=== PATIENT | female | born 1995 | race American Indian/Alaskan Native ===

== ENCOUNTER 2018-01-28 15:30 | Emergency (ER) | payer OTHER ==
[2017-12-20 10:04] VITALS: BMI 45.7
[2018-01-28] MEDS ORDERED: Lactated Ringer's 1,000 ML IV SCH (16:30)
[2018-01-28 16:46] LABS: BASO % 0.2 % (0.0-2.0); EOS # 0.1 K/uL (0.0-0.7); HEMOGLOBIN 10.5 g/dL (11.0-16.0); LYMPH # 1.3 K/uL (1.0-4.3); LYMPH % 15.1 % (20.0-40.0); MEAN CELL VOLUME 72.2 fL (81.0-99.0); MEAN CORPUSCULAR HEMOGLOBIN 23.2 pg (27.0-31.0); MEAN CORPUSCULAR HGB CONC 32.1 g/dL (33.0-37.0); MEAN PLATELET VOLUME 7.9 fL (7.2-11.7); MONO # 0.8 K/uL (0.0-0.8); MONO % 9.5 % (0.0-10.0); NEUT # 6.2 K/uL (1.8-7.0); NEUT % 74.2 % (50.0-75.0); NRBC % 0.1 % (0.0-2.0); RBC 4.54 Mil/uL (3.80-5.20); RED CELL DISTRIBUTION WIDTH 14.7 % (11.5-14.5); WHITE BLOOD COUNT 8.4 K/uL (4.8-10.8)
[2018-01-28 16:48] LABS: SQUAMOUS EPITHIAL 3 /hpf (0-5); URINE BACTERIA RARE (<OCC); URINE BILIRUBIN NEGATIVE (NEGATIVE); URINE BLOOD NEGATIVE (NEGATIVE); URINE CLARITY Clear (Clear); URINE COLOR Yellow (YELLOW); URINE GLUCOSE (UA) NORMAL (Normal); URINE LEUKOCYTE ESTERASE NEG Leu/uL (Negative); URINE PROTEIN NEGATIVE (NEGATIVE); URINE UROBILINOGEN NORMAL mg/dL (0.2-1.0)
[2018-01-28 16:53] VITALS: TEMP 97.8
[2018-01-28 16:56] LABS: ALB/GLOB RATIO 1.1 (1.0-2.1); ALBUMIN 3.4 g/dL (3.5-5.0); ALT/SGPT 14 U/L (9-52); AST/SGOT 17 U/L (14-36); BLOOD UREA NITROGEN 3 mg/dL (7-17); CALCIUM 8.7 mg/dl (8.6-10.4); GFR NON-AFRICAN AMERICAN > 60; URIC ACID 3.6 mg/dL (2.2-7.5)
[2018-01-28 17:01] LABS: BENZODIAZEPINES, UR NEGATIVE (NEGATIVE); OPIATES, UR NEGATIVE (NEGATIVE); PHENCYCLIDINE, UR NEGATIVE (NEGATIVE)
[2018-01-28 17:03] LABS: BARBITURATES, UR POSITIVE (NEGATIVE)
[2018-01-28 17:23] LABS: INR 1.1; PROTHROMBIN TIME 12.2 SECONDS (9.7-12.2)
--- NOTE | 2018-01-28 18:31 | US ---
Indication: No motion, 35 weeks, morbid obesity, gestational hypertension Comparison: None Technique: Real-time ultrasound was performed through the pelvis. Findings: There is a single living fetus in cephalic presentation. Amniotic fluid volume is within normal limits, 13.8 cm. Anterior placenta. The placenta is not previa. There are no adnexal masses or cysts evident. Cervix length measures approximately 3.8 cm. The study was performed for emergent evaluation, and the whole anatomic survey of the fetus was not performed. This should be performed on an outpatient elective basis as clinically warranted. Measurements and calculations: Fetus has a composite sonographic age of 34 weeks 0 days. This calculation is based on the biparietal diameter, head circumference, abdominal circumference, and femur length. Estimated heart rate 138.9 beats per min. Estimated weight 2275 g. Biophysical profile: movements 2/2 breathing 2/2 tone 2/2 Amniotic fluid 2/2 Total score impression: 10/30 Impression: Single living fetus with a composite sonographic age of 34 weeks 0 days. Estimated heart rate 138.9 beats per min. Biophysical profile of 8 out of 8.
[2018-01-29 00:51] VITALS: BP 122/74; PULSE 96
--- NOTE | 2018-02-03 11:58 | OBHP ---
Datetime: 01/28/2018 16:32 IP Adm Impression: No Active Labor IP Admit Plan: Discharge home Admit Comment, IP Provider: CC: Headache/dizziness for my entire , worst over the last day, no movement since yesterday afternoon. HPI: The 22 year old AA female, [id number], at 34wks gestation with gestational HTN - presents c/o he adache and dizziness for her entire , worst over the last day. She also c/o no perceived fet al movement since yesterday afternoon. She is followed weekly by her ObGyn (Shena lau in [place]) , who prescribed her Fioricet 1tab q4H PRN (called in) yesterday. She took one tab in the evening, bu t did not feel better. This morning, she woke up with increased headache, dizziness, blurry vision, a nd n/v. She describes the headache as frontal, pounding, rated 7/10, that comes and goes. She denies any sensitivity to light or any auras. She did not take her Labetalol 200mg BID this morning because she did not feel well (last dose last night). Of note, she has suffered from gestational HTN during t his only. Her prior 2 pregnancies were uncomplicated. She last saw her ObGyn 1 week ago - w ho has been performing weekly ultrasounds to monitor her . She has been instructed to get da princess bed rest due to her gestational HTN. She denies chest pain, overt SOB, numbness, tingling, overt LE swelling, abdominal pain, vaginal bleeding, contractions, loss of fluid, or any additional acute c omplaints. PMHx: Gestational HTN PSHx: Jaw fracture reguiring metal fixation 2015 Meds: Labetalol 200mg PO BID; Fioricet 1tab PO q4H PRN headache Allergies: NKDA FamHx: Mother 60yo w/ESRD, DM, HTN; Father 2/2 CA (unknown age or CA type) SocHx: denies ETOH, tobacco, or drug use. Last sexual acitivity 3wks ago with her partner. Lives w ith partner and children. Unemployed PMD: [employer] ([employer]) LMP: 06/03/17 Due date: 03/10/18 --- A_P: 1. Gestational HTN -continue Labetalol 200mg PO BID -r/o Pre-Eclampsia - CBC, CMP, PT/PTT, Fibrinogen, UA, UDS, LDH, Uric Acid -Start LR 125cc/hr (1 L) 2. Decreased contractions -last contractions noted to be yesterday -BPP 3. Headache -Start Tylenol 650mg PO q6H PRN headache -maintain hydration Case discussed with Dr. Teague, Attending Biju Leiva DO, PGY-3 Attending Note: patient seen and evaluated by me with the Resident. I agree with the above as docu mented Addendum: 1850 hours - Patient returns from ultrasound. Reports no headaches (after taking tylenol) - BP 122/74 ( S/P labetalol 200mg p.o. x 1) - pre-eclamptic labs negative: urine protein (-); normal LFTs and coagulation studies. - OB ultrasound images and report reviewed by me: EGA 34w 1d, EFW 5lb; anterior placenta; cephalic presentation. BHARTI 13.81; BPS 8/8 Assessment: 22 y.o. P2, gestational HTN - no evidence of pre-eclampsia. Headache - atypical for mi graine; relieved with tylenol. Decreased FM - resolved; BPP wnl and reassuring. Patient counsled on i mportance of takin ganti-HTN meds as prescribed and on taking tylenol PRN, and to increae p.o. intake of water. Patient has appointment Thrus 01/31/16; counseled to keep. Patient is clinically s table. Plan: 1) Discharge home 2) Reviewd S/S PTL 3) As above. Pelvic Type - PN: Not Done Extremities - PN: Normal Abdomen - PN: Normal Back - PN: Normal Breast - PN: Not Done Lungs - PN: Normal Heart - PN: Normal Thyroid - PN: Normal Neurologic - PN: Normal HEENT - PN: Normal General - PN: Normal Comments, ACOG Physical Exam: Neurological exam WNL CN's II-XII intact Mild posterior scalp sensitivity (atraumatic) EGA AdmitDate IP: 34.1 Vital Signs Provider: Reviewed Vital Signs Provider Details: Initial BP 154/85; came down to 124/95 without intervention. IP Chief Complaint: Decreased movement; Signs/Symptoms Gestational HTN Genitourinary Exam: Not Done DTRs - PN: Normal
== END 2018-01-28 18:29 | disposition home or self-care (01) ==
LOC: C.EROB 15:30
DX: O26.893 Other specified pregnancy related conditions, third trimester (principal); R51 Headache; O13.3 Gestational [pregnancy-induced] hypertension without significant proteinuria, third trimester; Z3A.34 34 weeks gestation of pregnancy
CPT/HCPCS: 76815; 76818; 80053; 80324; 80345; 80346; 80349; 80353; 80358; 80361; 81001; 83615; 83735; 83992; 84100; 84550; 85025; 85384; 85610; 85730; 99283; J7120